=== PATIENT | female | born 1990 | race Caucasian/White ===

== ENCOUNTER → 2018-03-30 | Day surgery (SDC) | payer SELFPAY ==
[~2018-03-30] MED LIST: CARAFATE1 GM/10 ML PO; FENTANYL CITRATE/PF 100MCG/2 ML INJ ONE; MIDAZOLAM HCL 2 MG/2 ML VIAL ONE; OMEPRAZOLE40 MG PO; PROPOFOL IV EMULSION 10 MG/ML 20 ML VIAL ONE
[2018-03-30 11:10] VITALS: BP 106/68
== END | disposition home or self-care (01) ==
LOC: OR 07:37
PROVIDERS: ATTEND Internal Medicine Gastroenterology
DX: K22.2 Esophageal obstruction (principal); K29.50 Unspecified chronic gastritis without bleeding; K21.0 Gastro-esophageal reflux disease with esophagitis; K29.80 Duodenitis without bleeding; Z71.3 Dietary counseling and surveillance; E66.01 Morbid (severe) obesity due to excess calories; F41.8 Other specified anxiety disorders; F32.9 Major depressive disorder, single episode, unspecified; Z68.43 Body mass index [BMI] 50.0-59.9, adult; Z87.891 Personal history of nicotine dependence
CPT/HCPCS: 43239; 43248; 81025; 88305; 88312; J2250; 43450

== ENCOUNTER 2018-09-15 15:27 | Emergency (ER) | payer OTHER, SELFPAY ==
[~2018-09-15] VITALS: Ht 154.9 cm; Wt 127.0 kg
[~2018-09-15 15:27] MED LIST changes: -FENTANYL CITRATE/PF 100MCG/2 ML INJ ONE; -MIDAZOLAM HCL 2 MG/2 ML VIAL ONE; -PROPOFOL IV EMULSION 10 MG/ML 20 ML VIAL ONE
[2018-09-15] MEDS ORDERED: ACETAMINOPHEN/CODEINE 300MG - 30MG TAB PO ONE (16:00)
--- NOTE | 2018-09-15 16:46 | Diagnostic Imaging Report ---
Examination: Single AP view of the chest. COMPARISON: None. INDICATION: Cough DISCUSSION: The lungs are well-inflated. No focal consolidation, pleural effusion, or pneumothorax. Mild prominence of the upper mediastinum and convexity of the AP window may be attributable to portable, AP technique. No pulmonary edema. No acute osseous abnormality. IMPRESSION: No acute cardiopulmonary abnormality. Convexity at the AP window of the mediastinum may be attributable to portable, AP technique. Upright PA and lateral chest radiographs are suggested for further evaluation when clinically feasible. Signed by: Dr. Elijah Patel M.D. on 09/15/2018 4:42 PM
[2018-09-15 16:55] VITALS: BP 126/95
== END 2018-09-15 17:02 | disposition home or self-care (01) ==
LOC: ER 15:27
DX: R05 Cough (principal); R06.09 Other forms of dyspnea; B34.9 Viral infection, unspecified
CPT/HCPCS: 71045; 99283